=== PATIENT | male | born 1970 | race Caucasian/White ===

== ENCOUNTER 2018-12-18 21:44 | Emergency (ER) | payer BC ==
[2018-12-18] MEDS ORDERED: DIPH,PERTUS(ACELL)TETVAC-LF 0.5 ML VIAL IM ONE (22:05)
[2018-12-18 22:08] VITALS: BP 126/78; PULSE 83; RESP 18; TEMP 97.1
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
--- NOTE | 2018-12-18 23:00 | CT ---
EXAM: CT Head Without Intravenous Contrast CLINICAL HISTORY: ITS.REASON CT Reason: Pain TECHNIQUE: Axial computed tomography images of the head/brain without intravenous contrast. CTDI is 63.67 mGy and DLP is 1615.7 mGy-cm. This CT exam was performed using one or more of the following dose reduction techniques: automated exposure control, adjustment of the mA and/or kV according to patient size, and/or use of iterative reconstruction technique. COMPARISON: None. FINDINGS: Brain: Possible small right temporal convexity arachnoid cyst measuring up to 1 cm. No hemorrhage. Ventricles: Unremarkable. No ventriculomegaly. Bones/joints: Unremarkable. No acute fracture. Soft tissues: Small left parietal scalp laceration. Nonspecific subcutaneous fat stranding along the right temporal scalp and overlying zygomatic arch and hazard mitigation officer space, potentially representing postsurgical change. Sinuses: Unremarkable as visualized. No acute sinusitis. Mastoid air cells: Unremarkable as visualized. No mastoid effusion. IMPRESSION: 1. No intracranial hemorrhage or other acute intracranial abnormality. 2. Small left parietal scalp laceration. 3. Possible small right temporal convexity arachnoid cyst measuring up to 1 cm. Recommend correlation with prior imaging if available. Alternatively, evaluation with MRI could be performed. EXAM: CT Cervical Spine Without Intravenous Contrast CLINICAL HISTORY: ITS.REASON CT Reason: Pain TECHNIQUE: Axial computed tomography images of the cervical spine without intravenous contrast. CTDI is 63.67 mGy and DLP is 1615.7 mGy-cm. This CT exam was performed using one or more of the following dose reduction techniques: automated exposure control, adjustment of the mA and/or kV according to patient size, and/or use of iterative reconstruction technique. COMPARISON: None. FINDINGS: Vertebrae: Unremarkable. No acute fracture. Discs/spinal canal/neural foramina: Mild multilevel degenerative disc disease and facet arthrosis is seen throughout the cervical spine which yields varying degrees of foraminal narrowing. There is no high-grade spinal canal stenosis. However, there is [id number] spinal canal stenosis at C5-C6. Soft tissues: Unremarkable. IMPRESSION: No fracture or traumatic malalignment of the cervical spine.
== END 2018-12-18 23:06 | disposition home or self-care (01) ==
LOC: EC 21:44
DX: S01.01XA Laceration without foreign body of scalp, initial encounter (principal); F10.129 Alcohol abuse with intoxication, unspecified; F17.200 Nicotine dependence, unspecified, uncomplicated; Z23 Encounter for immunization; Z98.890 Other specified postprocedural states; Z53.20 Procedure and treatment not carried out because of patient's decision for unspecified reasons; W08.XXXA Fall from other furniture, initial encounter; Y93.89 Activity, other specified; Y92.511 Restaurant or cafe as the place of occurrence of the external cause
CPT/HCPCS: 70450; 72125; 90471; 90715; 99283